=== PATIENT | male | born 1985 ===

== ENCOUNTER 2020-09-29 05:58 | Day surgery (SDC) | payer OTHER ==
[~2020-09-29 05:58] MED LIST: Lactated Ringers 1,000 ML IV SCH; Lidocaine 1%/Sod Bicarbonate in NS 8.4% 1 ML Syringe IDERM PRN; Sodium Chloride 0.9% 10 ML Syringe FLUSH PRN
[2020-09-29] MEDS ORDERED: Lidocaine 1% 30 ML SDV ONE (06:22)
[2020-09-29] MEDS ORDERED: Bupivacaine 0.25% 10 ML SDV ONE (06:22)
[2020-09-29] MEDS ORDERED: ceFAZolin 1 GM Vial ONE (06:50)
--- NOTE | 2020-10-10 17:55 | PCM.OPNOTE ---
- General Post-Op/Procedure Note Date of Surgery/Procedure: 09/29/20 Operative Procedure(s): exicision of foregin body/soft tissue mass left thumb Pre Op Diagnosis: painful left thumb mass wtih possible foreign body Post-Op Diagnosis: Same Anesthesia Technique: Local Primary Surgeon: Terrence Mai Physical Therapy Aide: Radha Soliz in mLs: 5 Complications: None Condition: Good
--- NOTE | 2020-10-10 18:44 | OR ---
DATE OF OPERATION: 09/29/2020 SURGEON: Terrence Mai MD OPERATION PERFORMED: Excision of foreign body/soft tissue mass, left thumb. PREOPERATIVE DIAGNOSIS: Painful left thumb mass with possible foreign body. POSTOPERATIVE DIAGNOSIS: Painful left thumb mass with possible foreign body. ANESTHESIA: Local only. EMPLOYMENT SECURITY OFFICER: Radha Soliz PA-C. ESTIMATED BLOOD LOSS: Less than 5 mL. COMPLICATIONS: None. CONDITION: Stable. DESCRIPTION OF PROCEDURE: The patient was identified in the preoperative holding area. Proper site was marked and identified by the surgeon. The patient was taken back to the operating theater where after the patient was positioned, left upper extremity was sterilely prepped and draped in the usual sterile fashion. OR time-out was performed. The patient did not receive antibiotic as it is not indictated for hand mass at this time. An Esmarch was used as a tourniquet at the base of the thumb. 0.25% Marcaine and 1% lidocaine were used to anesthetize around the mass near the IP joint of the thumb on the radial side. A longitudinal incision was then made over the mass. This was taken down to subcutaneous tissue. There was noted to be a large amount of scar tissue, indicative of foreign body reaction in the subcutaneous tissues. This was then excised using a Tom [place] blade. Once it was completely excised, adequate saline was irrigated through the wound. The specimen was sent to pathology and 4-0 nylon was used for closure of the skin. The patient had a sterile soft dressing applied and was sent to PACU in stable condition. MMODAL /[id number]
== END 2020-09-29 08:12 | disposition home or self-care (01) ==
LOC: JD.SDS 05:58
PROVIDERS: ATTEND Orthopaedic Surgery
DX: R22.32 Localized swelling, mass and lump, left upper limb (principal); Z87.891 Personal history of nicotine dependence; Z87.442 Personal history of urinary calculi; Z87.2 Personal history of diseases of the skin and subcutaneous tissue
CPT/HCPCS: 26115; 36415; 80048; 85025; 87641; J0690; J3490; J7120